=== PATIENT | female | born 1970 | race Caucasian/White ===

== ENCOUNTER 2024-01-22 12:04 | Emergency (ER) | payer OTHER, SELFPAY ==
[2024-01-22 12:06] VITALS: BP 159/94
[2024-01-22 12:22] VITALS: BMI 23.5
--- NOTE | 2024-01-22 13:03 | ED.GENMED ---
History of Present Illness
General
Chief Complaint: Back Pain
Source: patient
Time Seen by Provider: 01/22/24 12:35
Travel History
Have you had any contact with someone who has COVID-19?: No
Do you have any symptoms of coronavirus? Fever > 100 degrees, chills, cough, shortness of breath, sore throat, loss of taste or smell, muscle aches, or headache?: No
History of Present Illness
History of Present Illness:
53-year-old female with no significant past medical history presenting to the emergency department for evaluation of left-sided neck and arm pain/paresthesia/numbness that started early Monday morning when she rolled over in bed stating she felt a
popping sensation and then the tingling. Patient states symptoms on Monday and Monday were mild but yesterday seem to worsen which prompted her to go to urgent care. While at urgent care she was prescribed Flexeril and prednisone which she is
taking with no relief. This morning patient states the numbness/paresthesia in her thumb, index and middle finger were worse and she was unable to stand up straight without the pain worsening prompting her to come to the ER today. She states she
does not have any history of similar pain and cannot think of anything else that may have caused the symptoms. She denies any chest pain, shortness of breath, palpitations, headache, visual changes or any other concerns. She states the pain is
also exacerbated with range of motion of her neck and also notes the pain will often times shoot down her arm with movements of her neck
Past History
Past History
ED Past Medical History: None
ED Past Surgical History: Orthopedic
Social History
Tobacco: Non-smoker
Alcohol: Occasional
Drug: Marijuana
Personal: Single
Living: with family
Review of Systems
Review of Systems
All Other Systems: ROS reviewed and negative except as documented in HPI and ROS
Phy Exam
Physical Exam
Physical Exam:
GENERAL: Alert , in no apparent distress at rest but appears uncomfortable with any movements
EYE: conjunctiva clear
Head: Normocephalic atraumatic
NECK: Supple, no midline tenderness but does have reproducible tenderness within the left trapezius musculature
ENT: mmm.
LUNGS: no acute respiratory distress
NEUROLOGICAL: Alert and oriented, patient is able to range of motion bilateral upper and lower extremities. She does have some reproducible radiculopathy and paresthesia with full extension of her left arm as well as with shoulder abduction.
Sensation is subjectively diminished with palpation of the thumb, index and middle finger. Box Chipper strength 4+ out of 5 on the left compared to the right which is 5 out of 5. Biceps, triceps and brachioradialis deep tendon reflexes 2+ bilateral.
SKIN: Warm and dry, skin intact.
MUSCULOSKELETAL: well perfused.
PSYCH: Normal and appropriate interaction.
Scores
Heart Failure Risk
Heart Failure Risk Score: Not Applicable
Heart Score for Chest Pain Patients
STEMI patient?: Not applicable
Withdrawal Assessment of Alcohol
Withdrawal Assessment Completed?: Not applicable
Course
Orders/Labs/Results
Orders:
Orders
01/22/24 12:57
Dexamethasone Sod Phosphate [Decadron] 10 mg IM NOW STA
Diazepam [Valium] 5 mg PO NOW STA
Ketorolac [Toradol] 60 mg IM NOW STA
Lidocaine [Lidocaine 4% Patch] 1 patch TOPICAL NOW STA
01/22/24 12:58
CR Cervical Spine 4 Or 5 Vw Urgent
Comment:
Reason For Exam: left sided neck pain/radiculopathy
Vital Signs
Initial and Last Documented VS:
Initial Vital Signs
Temp Pulse Resp BP Pulse Ox
98.0 F 99 18 159/94 98
01/22/24 12:06 01/22/24 12:06 01/22/24 12:06 01/22/24 12:06 01/22/24 12:06
Last Documented Vital Signs
Temp Pulse Resp BP Pulse Ox
98.0 F 99 18 159/94 98
01/22/24 12:06 01/22/24 12:06 01/22/24 12:06 01/22/24 12:06 01/22/24 12:06
MDM/Problems Addressed
Differential Diagnosis Includes:
Cervical radiculopathy, median or radial nerve entrapment, thoracic outlet syndrome, no concern for ACS
MDM/Problems Addressed:
53-year-old female presenting emergency department for evaluation of neck pain combined with radiculopathy to the left upper extremity. Evaluated at urgent care yesterday and treated with steroid as well as Flexeril without much relief. Pain worse
today especially with movement. Will treat here with Toradol, Decadron, Valium and topical Lidoderm patch. X-ray of the cervical spine ordered. Anticipate need for outpatient management with spine/Ortho. Patient may also need physical therapy as
well as advanced imaging which we also discussed. Anticipate discharge home
*Radiology
Radiology exam reviewed: preliminary read by ED provider (Straightening of the natural curve but no significant degenerative changes)
*Pulse Oximetry
Patient hypoxic: no
*Critical Care Note
Total Time (30-74mins, 75-104mins- exclusive of procedures): Not Applicable
Patient Management
Discussion with other providers: PCP
Escalation/DeEscalation of care consider admission/obs:
Patient's x-ray largely unremarkable. Prescriptions for Valium and Lidoderm patch sent to pharmacy. Continue prednisone taper at home. NSAIDs/Tylenol as needed. I messaged patient's primary care provider who will ensure close follow-up within 1
to 2 days. Information for orthopedics was provided as well.
ED Attending Note
-
Portions of this chart may have been created with voice recognition software.� Occasional wrong word or��sound alike� substitutions may have occurred due to the inherent limitations of voice recognition software.
Discharge Plan
Departure
Patient Disposition: Home (Routine Discharge)
Date of Disposition: 01/22/24
Time of Disposition: 13:45
Patient with high blood pressure during this ER visit?: Yes
Discharge Problem:
Cervical radiculopathy
Instructions: Radiculopathy (DC)
Prescriptions:
New
diazepam [Valium] 5 mg tablet
5 mg PO BID PRN (Reason: muscle spasm) Qty: 10 0RF
lidocaine [Lidoderm] 5 % adhesive patch,medicated
1 patch topical DAILY Qty: 30 0RF
No Action
prednisone 20 mg Tablet
20 mg PO .ASDIRECTED
ibuprofen 200 mg Tablet
800 mg PO Q8H PRN (Reason: pain)
cyclobenzaprine [Flexeril] 5 mg Tablet
5 mg PO TID PRN (Reason: pain)
Referrals:
Scott Armstrong MD [Active] - (Ortho)
Marina Capps MD [Family Provider] -
Interventions
Interventions:
*Risk Screen - Suicide Last Done: 01/22/24 12:22
*General Assessment Last Done: 01/22/24 14:01
*Neglect/Abuse Screening Last Done: 01/22/24 12:22
*ED COVID-19 Vaccine History Last Done: 01/22/24 12:06
*Nursing Disposition Last Done: 01/22/24 14:01
ED-Musculoskeletal Assessment Last Done: 01/22/24 12:22
Discharge Date and Time
Discharge Date/Time: 01/22/24 14:01
[2024-01-22] MEDS: LIDOCAINE 4% PATCH 1 PATCH TOPICAL (13:30)
[2024-01-22] MEDS: DECADRON 10 MG IM (13:31)
[2024-01-22] MEDS: VALIUM 5 MG PO (13:31)
[2024-01-22] MEDS: TORADOL 60 MG IM (13:31)
== END 2024-01-22 14:01 | disposition home or self-care (01) ==
LOC: EMR 12:04
PROVIDERS: EMERGENCY PHYSICIAN Emergency Medicine; FAMILY PHYSICIAN Family Medicine
DX: M54.12 Radiculopathy, cervical region (principal)
CPT/HCPCS: 99284; 96372 ×2; 72050

== ENCOUNTER → 2024-11-11 08:55 | Outpatient (REF) | payer OTHER, SELFPAY | LOC: HWWDC 08:55 | PROVIDERS: ATTENDING PHYSICIAN Internal Medicine; FAMILY PHYSICIAN Family Medicine | DX: Z12.31 Encounter for screening mammogram for malignant neoplasm of breast (principal) | CPT/HCPCS: 77063; 77067 ==

== ENCOUNTER → 2025-04-08 10:25 | Outpatient (REF) | payer OTHER, SELFPAY | LOC: RAD 10:25 | PROVIDERS: FAMILY PHYSICIAN Family Medicine; OTHER PHYSICIAN Physical Medicine & Rehabilitation; OTHER PHYSICIAN Physician Assistant | DX: Z09 Encounter for follow-up examination after completed treatment for conditions other than malignant neoplasm (principal) | CPT/HCPCS: 72052 ==

== ENCOUNTER → 2025-09-19 16:20 | Outpatient (REF) | payer OTHER, SELFPAY | LOC: REG 16:20 | PROVIDERS: ATTENDING PHYSICIAN Physician Assistant; FAMILY PHYSICIAN Family Medicine | DX: Z09 Encounter for follow-up examination after completed treatment for conditions other than malignant neoplasm (principal) | CPT/HCPCS: 72050 ==